=== PATIENT | female | born 1985 | race Caucasian/White ===

== ENCOUNTER 2017-11-14 15:34 | Emergency (ER) | payer OTHER ==
[~2017-11-14] VITALS: Ht 165.1 cm; Wt 78.4 kg
[~2017-11-14 15:34] MED LIST: CIPROFLOXACN500 MG PO
[2017-11-14 16:22] LABS: URINE BILIRUBIN - DIPSTICK NEGATIVE (NEGATIVE); URINE BLOOD DIPSTICK MODERATE (NEGATIVE); URINE COLOR YELLOW; URINE GLUCOSE - DIPSTICK NEGATIVE (NEGATIVE); URINE KETONE TRACE mg/dL (NEGATIVE); URINE LEUK ESTERASE NEGATIVE (NEGATIVE); URINE NITRITE - DIPSTICK NEGATIVE (Negative); URINE PH 5.5 (4.5-8.0); URINE PROTEIN - DIPSTICK 30 mg/dL (NEG-TRACE); URINE SPECIFIC GRAVITY >=1.030; URINE UROBILINOGEN - DIPSTICK 0.2 E.U./dL (0.2)
[2017-11-14 16:23] LABS: HEMATOCRIT 44.3 % (37.0-47.0); HEMOGLOBIN 14.5 g/dl (12.0-16.0); IMMATURE GRANULOCYTES 0.3 % (0.0-1.0); MEAN CELL VOLUME 90.2 fL CALC (80.0-100.0); MEAN CORPUSCULAR HGB 29.5 pG CALC (26.0-32.0); MEAN CORPUSCULAR HGB CONC 32.7 g/L CALC (32.0-36.0); NEUT# 6.84 thou/uL (2.00-7.15); RED BLOOD COUNT 4.91 mill/uL (4.20-5.60); RED CELL DISTRI WIDTH 13.8 % (11.5-15.5)
[2017-11-14 16:24] LABS: URINE CLARITY CLEAR; URINE SQUAMOUS EPITHELIAL CELL FEW EPI/hpf (0-FEW)
[2017-11-14 16:27] LABS: BARBITURATES NEGATIVE (NEGATIVE); COCAINE NEGATIVE (NEGATIVE); METHADONE NEGATIVE (NEGATIVE); TETRAHYDROCANNABIONOL POSITIVE (NEGATIVE); TRICYLIC ANTIDEPRESSANTS NEGATIVE (NEGATIVE)
[2017-11-14 16:28] LABS: OXCYCODONE NEGATIVE (NEGATIVE)
[2017-11-14 17:52] LABS: ALBUMIN 5.2 g/dL (3.2-5.0); ALKALINE PHOSPHATASE 69 u/l (38-126); ANION GAP 22 (6-22 (CALC)); BILIRUBIN, TOTAL 0.4 mg/dL (0.0-1.4); BUN 14 mg/dL (7-17); BUN/CREATININE RATIO 18 (12-20 (CALC)); CARBON DIOXIDE 24 mmol/l (22-30); CHLORIDE 103 mmol/l (95-108); CREATININE 0.7 mg/dL (0.5-1.0); GFR > 60 ML/MIN (>=60 (CALC)); GFR FOR AFR.AMER. > 60 ML/MIN (>=60 (CALC)); POTASSIUM 4.1 mmol/l (3.5-5.1); SGOT/AST 15 u/l (14-36); SGPT/ALT 26 u/l (9-52); SODIUM 145 mmol/l (137-146); TOTAL PROTEIN 8.8 g/dL (6.3-8.2)
[2017-11-14] MEDS ORDERED: ZOFRAN4 MG/TAB PO (18:00)
[2017-11-14] MEDS ORDERED: KEPPRA750 M2 PO (18:00)
[2017-11-14 18:03] VITALS: BP 140/70
== END 2017-11-14 18:15 | disposition home or self-care (01) | DRG 392 ==
LOC: ED 15:34
PROVIDERS: Emergency Medicine
DX: R11.10 Vomiting, unspecified (principal); E11.9 Type 2 diabetes mellitus without complications; F17.210 Nicotine dependence, cigarettes, uncomplicated; F31.9 Bipolar disorder, unspecified; G40.909 Epilepsy, unspecified, not intractable, without status epilepticus; F43.10 Post-traumatic stress disorder, unspecified; J45.909 Unspecified asthma, uncomplicated